=== PATIENT | male | born 1985 | race Caucasian/White ===

== ENCOUNTER 2018-01-12 18:06 | Inpatient (IN) | payer OTHER, SELFPAY ==
[2018-01-12] VITALS (8 sets, daily range): BP systolic 121–134; BP diastolic 72–97; PULSE 64–72; RESP 16–18; TEMP 36.7–36.8; O2SAT 94–100; BMI 25.1; BMI 25.6
--- NOTE | 2018-01-12 18:10 | NURSING ---
NO OLD EKGS
--- NOTE | 2018-01-12 18:20 | RAD_ITS ---
STUDY: X-RAY CHEST REASON FOR EXAM: Male, 32 years old. Chest pain, back pain. TECHNIQUE: Portable chest. COMPARISON: None. FINDINGS: The lungs are clear and expanded. There is no demonstrated pleural abnormality. Normal size heart. Normal mediastinum and zeinab. Normal visualized pulmonary arteries. Normal visualized aortic arch and descending thoracic aorta. Normal visualized thoracic spine. Normal visualized ribs, clavicles, and shoulders. There is no demonstrated abnormality of the visualized soft tissue structures of the upper abdomen. RAD/Chest 1 View (Portable) IMPRESSION: Normal x-ray examination of the chest. Electronically Signed: Jana June MD at 19:18 EST Tel , Service support ,
--- NOTE | 2018-01-12 18:20 | EKG12_ITS ---
Test Reason : CP Blood Pressure : / mmHG Vent. Rate : 065 BPM Atrial Rate : 065 BPM P-R Int : 154 ms QRS Dur : 094 ms QT Int : 386 ms P-R-T Axes : 032 075 042 degrees QTc Int : 401 ms Normal sinus rhythm Normal ECG Confirmed by TOMMY ALFARO ([id number]), proposal editor MEERA URIARTE ([id number] on 01/16/2018 2:24:20 PM Referred By: SUKHJINDER Confirmed By:TOMMY ALFARO
--- NOTE | 2018-01-12 18:21 | ED.DCSUM_ITS ---
- ER Visit Summary Date of Service: 01/12/18 Chief Complaint: Chest pain History of Present Illness: The patient is a 32 M who has had chest pain for the past 4 days. He describes an intermittent tightness in his chest. He does not know anything that would provoke it. He took ibuprofen and drink water and that made it go away. He states that his back and arms felt tight. He has no fevers. No history of any cardiac issues. He has no DVT or PE risk factors. Physical Examination: Vital signs reviewed. HEENT exam unremarkable. Heart is regular rate and rhythm without murmurs. Lungs are clear to auscultation. Abdomen is soft and nontender. Extremities reveal no edema. Peripheral pulses are equal. Skin exam normal. Neurologic exam normal. Test Results: EKG sinus rhythm with no ST changes. Labs reveal troponin of 1.69 Emergency Department Course and Treatment: Patient was given aspirin. He completely denies drug use. He has no risk factors. His MASTER score is 1. I discussed with Dr. Rodrigues. He was given Lovenox, metoprolol and Brilinta. He will be admitted to the hospital for a catheterization tomorrow morning. Treatment Plan: [] Disposition: Admit Impression: NSTEMI This note was generated with [employer] dictation software. It may contain incorrect words, spelling, and punctuation that were not noted in review of the chart prior to signing ED Disposition - Plan for ED Patient: Chief Complaint: Chest Pain Referrals: Jarett Leija MD [Primary Care Provider] -
[2018-01-12] MEDS: Aspirin 81 MG TAB.CHEW 324 MG PO (18:32)
[2018-01-12 18:36] LABS: Absolute Lymphocyte Count 2.89 X10^3/ul (0.83-4.51); Absolute Neutrophil Count 2.4 X10^3/uL (2.0-7.7); Basophil# 0.03 X10^3/uL; Basophil% 0.5 % (0-1); Eosinophil# 0.11 X10^3/uL; Eosinophils% 1.9 % (0-5); Hematocrit 42.4 % (40-54); Hemoglobin 14.3 g/dl (13.0-16.5); Lymphocyte # 2.89 X10^3/ul (4.0); Lymphocyte % 49.3 % (19-41); Mean Corp Hgb Conc 33.7 g/gl (32-36); Mean Platelet Vol. 9.4 fl (6.2-12.0); Monocyte# 0.46 X10^3/uL; Monocyte% 7.8 % (0-10); Neutrophil # 2.36 X10^3/uL (2.7-7.7); Neutrophil % 40.3 % (47-70); Platelet Count 233 K/mm3 (150-450); RBC Distribution Width CV 12.6 % (11.6-14.6); RBC Distribution Width SD 39.7 fl (35.1-43.9); Red Blood Count 4.93 M/mm3 (4.6-6.2); White Blood Count 5.9 K/mm3 (4.4-11.0)
[2018-01-12 18:49] LABS: POSITIVE COUNT NO; POSITIVE DIFFERENTIAL NO; POSITIVE MORPHOLOGY NO
[2018-01-12 18:55] LABS: Anion Gap 7 (5-15); BUN 9 mg/dL (7-18); BUN/Creat Ratio 10.3 RATIO (10-20); Calcium,Total 8.5 mg/dL (8.5-10.1); Chloride 102 mmol/L (98-107); Creatinine, Serum 0.87 mg/dL (0.70-1.30); EST Glomerular Filtration Rate 108 mL/min (>60); Est Glom Filt Rate - Afr Amer 131 mL/min (>60); Estimated Creatinine Clearance 131.03 ml/min; Glucose 93 mg/dL (74-106); Potassium 3.9 mmol/L (3.5-5.1); Sodium Level 139 mmol/L (136-145)
[2018-01-12] MEDS: TICAGRELOR 90 MG TABLET 180 MG PO (19:33)
[2018-01-12] MEDS: Enoxaparin 80 MG/0.8 ML Syringe SC (19:34)
[2018-01-12] MEDS: Metoprolol(XL)Succ 25 MG Tablet PO (19:34)
--- NOTE | 2018-01-12 20:23 | HP.PCM_ITS ---
Problem List (1) Atypical chest pain Status: Acute (2) STEMI (ST elevation myocardial infarction) Status: Acute History of Present Illness Date of Admission: 01/12/18 Chief Complaint: Chest pain for 4 days The patient is a 32 year old M with no significant medical problems came to ER with chest pain since Tuesday. Patient had chest pain, nonspecific bilateral, anterior and posterior on Tuesday and took Motrin and had relief. He had mild chest soreness on Tuesday and then no problem until today morning when he again had chest pain that persisted for about half an hour to 1 hour and then in the evening which lasted for about an hour until he came to ER and got relief from aspirin. Today, he felt that this chest pain radiated to his jaws and left arm but no associated shortness of breath, palpitation, near syncope or syncope. He denies any fever, chills, URI or lower urinary tract symptoms. No DVT or PE significant risk factor. No significant family history of cardiac disease in first-degree family relatives. EKG shows normal sinus rhythm at 65 bpm with no significant ST-T changes suggestive of ischemia. Troponin is 1.69. MASTER risk 2/7. [] Past Medical History Allergies Penicillins [PCN] Allergy (Verified 01/12/18 18:06) Unknown Home Medications: Ambulatory Orders Medication Instructions Recorded NK 01/12/18 Smoking Status: Never smoker Tobacco Use: Non-smoker - *Family History Paternal History Items: No pertinent history - Of cardiac disease coronary artery disease/CHF Review of Systems Constitutional: Denies: Chills, Fever, Weight Change HEENT: Denies: Head Aches, Sinus Congestion, Sinus Drainage Cardiovascular: Reports: Chest Pain, Chest Tightness. Denies: Palpitations Respiratory: Denies: Cough, Shortness of breath at rest, Sputum production Gastrointestinal: Denies: Abdominal Pain, Nausea, Vomiting Genitourinary: Denies: Dysuria Musculoskeletal: Denies: Joint Pain, Joint Tenderness Skin: Denies: Rash, Wounds Neurological: Denies: Numbness, Tingling, Focal weakness Psychiatric: Denies: Anxiety, Depression, Homicidal Ideations, Suicidal Ideations Hematologic/ Lymphatic: Denies: Easy Bruising, Easy Bleeding VTE Information - Inpt Only VTE Present on Admission: No VTE Mechan Device Prophylaxis: None VTE Pharm Prophylaxis ordered?: No Patient Problems: Active and Suspected Problems Atypical chest pain (Acute) STEMI (ST elevation myocardial infarction) (Acute) - Physical Exam General: Alert, Oriented x3, Cooperative HEENT: Atraumatic, PERRLA, EOMI, Normocephalic Neck: Supple, No JVD, Negative Carotid Bruits Lungs: Clear to auscultation, Normal air movement, No rhonchi, No wheeze, No rales, - - No reproducible chest tenderness Cardiovascular: Regular rate, Regular Rhythm, Normal S1, Normal S2, No murmurs Abdomen: Bowel Sounds Present, Soft, Non Tender, Non-Distended Extremities: No edema, Capillary Refill Less than 3 Seconds Skin: No rashes, No breakdown Musculoskeletal: No Tenderness to Palpation of Joints or Extremities Neurological: Cranial nerves II-XII grossly intact, Deep Tendon Reflexes 2+/4 and Symmetrical, Neuro grossly intact, Motor Exam 5/5 strength throughout Psych/Mental Status: Normal Affect, Appropriate Vital Signs Temp Pulse Resp BP Pulse Ox 98.1 F 70 16 124/97 H 96 01/12/18 18:12 01/12/18 19:32 01/12/18 19:54 01/12/18 19:32 01/12/18 19:32 Oxygen Delivery Method Room Air Weight: 183 lb 10.321 oz Body Mass Index (BMI) 25.6 Laboratory Tests Past 24 Hrs 01/12/18 01/12/18 18:12 18:12 WBC 5.9 RBC 4.93 Hgb 14.3 Hct 42.4 MCV 86.0 MCH 29.0 MCHC 33.7 RDW 12.6 RDW Differential 39.7 Plt Count 233 MPV 9.4 Immature Gran % (Auto) 0.200 Neut % (Auto) 40.3 L Lymph % (Auto) 49.3 H [place] % (Auto) 7.8 Eos % (Auto) 1.9 Baso % (Auto) 0.5 Absolute Neuts (auto) 2.4 Absolute Lymphs (auto) 2.89 Total Counted Not Reportable Sodium 139 Potassium 3.9 Chloride 102 Carbon Dioxide 30.0 Anion Gap 7 BUN 9 Creatinine 0.87 Estim Creat Clear Calc 131.03 Est GFR (MDRD) Af Amer 131 Est GFR (MDRD) Non-Af 108 BUN/Creatinine Ratio 10.3 Glucose 93 Calcium 8.5 Troponin I 1.690 H* Assessment/Plan All Active Problems Atypical chest pain (Acute) STEMI (ST elevation myocardial infarction) (Acute) The patient is a 32 year old M with no significant medical problems came to ER with chest pain since Tuesday. Patient had chest pain, nonspecific bilateral, anterior and posterior on Tuesday and took Motrin and had relief. He had mild chest soreness on Tuesday and then no problem until today morning when he again had chest pain that persisted for about half an hour to 1 hour and then in the evening which lasted for about an hour until he came to ER and got relief from aspirin. Today, he felt that this chest pain radiated to his jaws and left arm but no associated shortness of breath, palpitation, near syncope or syncope. He denies any fever, chills, URI or lower urinary tract symptoms. No DVT or PE significant risk factor. No significant family history of cardiac disease in first-degree family relatives. EKG shows normal sinus rhythm at 65 bpm with no significant ST-T changes suggestive of ischemia. Troponin is 1.69. MASTER risk 2/7. 1. Atypical chest pain with elevated troponin, suspicion of non-STEMI: Patient is being admitted in PCU. On ACS protocol with serial cardiac enzymes. Scheduled for elective cardiac cath tomorrow morning. ER physician discussed with Dr. Rodrigues. Patient was given Lovenox 80 mg subcu 1 dose, metoprolol and Brilinta 180 mg as a protocol for non-STEMI. Nitro sublingual as needed for chest pain. Fasting lipid profile tomorrow a.m. TSH tomorrow a.m. 2. Mild constipation: Oral laxatives ordered. 3. DVT prophylaxis: Low risk but patient had Lovenox 80 mg subcu 1 dose for suspicion of non-STEMI. Laboratory Results 01/12/18 18:12: WBC 5.9, RBC 4.93, Hgb 14.3, Hct 42.4, MCV 86.0, MCH 29.0, MCHC 33.7, RDW 12.6, RDW Differential 39.7, Plt Count 233, MPV 9.4, Immature Gran % (Auto) 0.200, Neut % (Auto) 40.3 L, Lymph % (Auto) 49.3 H, [place] % (Auto) 7.8, Eos % (Auto) 1.9, Baso % (Auto) 0.5, Absolute Neuts (auto) 2.4, Absolute Lymphs (auto) 2.89, Total Counted Not Reportable 01/12/18 18:12: Sodium 139, Potassium 3.9, Chloride 102, Carbon Dioxide 30.0, Anion Gap 7, BUN 9, Creatinine 0.87, Estim Creat Clear Calc 131.03, Est GFR (MDRD) Af Amer 131, Est GFR (MDRD) Non-Af 108, BUN/Creatinine Ratio 10.3, Glucose 93, Calcium 8.5, Troponin I 1.690 H* Code Visit Inpatient E&M: 40423 Init Hosp L3
--- NOTE | 2018-01-12 20:34 | EKG12_ITS ---
Test Reason : ADMIT Blood Pressure : / mmHG Vent. Rate : 067 BPM Atrial Rate : 067 BPM P-R Int : 154 ms QRS Dur : 090 ms QT Int : 368 ms P-R-T Axes : 033 082 035 degrees QTc Int : 388 ms Normal sinus rhythm Normal ECG No previous ECGs available Confirmed by TOMMY ALFARO ([id number]), loan expeditor MEERA URIARTE ([id number] on 01/16/2018 2:58:41 PM Referred By: HARPREET Confirmed By:TOMMY ALFARO
--- NOTE | 2018-01-12 21:35 | PCM.CONS.C ---
Problem List (1) Abnormal cardiac enzyme level Status: Acute (2) Atypical chest pain Status: Acute (3) NSTEMI (non-ST elevated myocardial infarction) Status: Acute Reason for Consult Date of Consultation: 01/12/18 History of Present Illness: The patient is a 32 year old white male with no past cardiovascular/medical history who presents for evaluation of chest discomfort and subsequent findings of abnormal cardiac enzymes concerning for a non-ST segment elevation SC. The patient states starting last Tuesday he began having chest and back discomfort. This is waxed and waned throughout the course of the week. As the week is gone on he is also noted discomfort in his neck/under his chin as well as in the triceps areas of both upper extremities. He has not had any significant change in his respiratory status nor has he had any obvious nausea, emesis, or diaphoresis. There has been no palpitations, near syncope, or syncope. He has not complained of any episodes of orthopnea, PND, peripheral pitting edema. He states that he attributed his symptoms to muscle skeletal discomfort. He treated them on his own with aspirin and/or ibuprofen as well as drinking water. He states after doing such he did feel somewhat better. However his symptoms continue to wax and wane and thus he was brought to the emergency department this evening for further evaluation. There he underwent laboratory studies which demonstrated an abnormal troponin I level. He had an ECG performed and repeated that demonstrated what appeared to be normal sinus rhythm with no obvious acute ECG changes. A chest x-ray was performed which reported no obvious acute cardiopulmonary changes. He was placed in the PCU for further evaluation and care. At the present time he states he is resting comfortably with no ongoing discomfort. In the interim he has been treated with a combination of aspirin, Brilinta, Lovenox, and initiation of low-dose beta-kacey therapy. He denies any illness prior to the symptoms such as a viral illness. He denies any positional component of his symptoms that would raise suspicion of an underlying acute pericarditis type event. He has had no obvious findings of elevated heart rate, diminished blood pressure, elevated respiratory rate, or diminished O2 saturations suspicious for acute thromboembolic disease. There is been no history of cerebral vascular disease, ongoing infectious related etiologies, or renal insufficiency. He states that there is no obvious cardiovascular disease in his family other than a grandparent who had a CVA in their 70s. He denies any tobacco history and/or any illicit drug use. He states he has been actively working without obvious issues until this week. He has had no trauma to his thoracic cavity area at home or at work. [] Past Medical History Allergies/Adverse Reactions: Allergies Penicillins [PCN] Allergy (Verified 01/12/18 18:06) Unknown Home Medications: Ambulatory Orders Medication Instructions Recorded NK 01/12/18 - *Family History Paternal History Items: No pertinent history - Of cardiac disease coronary artery disease/CHF Lives: Spouse/ Significant Other Smoking Status: Never smoker Tobacco Use: Non-smoker Alcohol: None Drugs: None Review of Systems - Review of Systems General: Denies: Fever, Night Sweats, Fatigue Cardiovascular: Reports: Chest Discomfort, Chest Discomfort at Rest, Chest Discomfort with Exertion. Denies: Shortness of Breath, Orthopnea, PND, Peripheral Edema, Palpitations, Lightheadedness, Dizziness, Near Syncope, Syncope Respiratory: Denies: Cough, Sputum Production, Hemoptysis Gastrointestinal: Denies: Hematemesis, Hematochezia, Melena Genitourinary: Denies: Dysuria, Hematuria Skin: Denies: Rash Subjectve: This is a 32-year-old white male who appears resting comfortably at the moment in no acute distress. Objective: Vital Signs Temp Pulse Resp BP Pulse Ox 98.3 F 64 16 121/72 H 98 01/12/18 19:45 01/12/18 19:45 01/12/18 19:54 01/12/18 19:45 01/12/18 19:45 Oxygen Delivery Method Room Air Weight: 183 lb 10.321 oz Body Mass Index (BMI) 25.6 General: Awake, Alert, Oriented x 3, Cooperative, No Acute Distress HEENT: Atraumatic, Normocephalic, PERRL, EOMI, Sclera Non Icteric Oral: Moist Mucosa Neck: Supple, Good ROM, No JVD Lungs: Clear to auscultation Cardiovascular: Regular Rhythm, Normal S1, Normal S2 Vascular: No Carotid Bruits Abdomen: Bowel Sounds Present, Soft, Non Tender Extremities: No Cyanosis, No Clubbing, No edema Neurological: No Focal Motor or Sensory Deficit Psych/Mental Status: Appropriate, Normal Affect 01/12/18 18:12: WBC 5.9, RBC 4.93, Hgb 14.3, Hct 42.4, MCV 86.0, MCH 29.0, MCHC 33.7, RDW 12.6, RDW Differential 39.7, Plt Count 233, MPV 9.4, Immature Gran % (Auto) 0.200, Neut % (Auto) 40.3 L, Lymph % (Auto) 49.3 H, [place] % (Auto) 7.8, Eos % (Auto) 1.9, Baso % (Auto) 0.5, Absolute Neuts (auto) 2.4, Total Counted Not Reportable 01/12/18 18:12: Sodium 139, Potassium 3.9, Chloride 102, Carbon Dioxide 30.0, Anion Gap 7, BUN 9, Creatinine 0.87, Est GFR (MDRD) Af Amer 131, Est GFR (MDRD) Non-Af 108, BUN/Creatinine Ratio 10.3, Glucose 93, Calcium 8.5, Troponin I 1.690 H* Rhythm: Sinus rhythm EKG: As noted above CXR: As noted above Assessment/Plan 1. Chest discomfort The patient presents with waxing and waning chest discomfort. He has some features concerning for angina pectoris. He has had no other obvious etiology to explain his symptoms at this time. He did have cardiac enzymes performed which were abnormal. Thus far there is been no other obvious etiology to explain his cardiac enzymes other than the current concern of underlying cardiovascular disease. He has been treated for cardiovascular disease. He appears to be symptomatically improved at the moment. He will continue to be followed with respect to his symptoms, laboratory studies, and ECG. However based upon the ongoing combination of concerns it was felt prudent that he, unless otherwise explained, undergo further evaluation in the cardiac catheterization laboratory to evaluate for obvious underlying CAD that requires further evaluation care. 2. Abnormal cardiac enzyme Again thus far there is been no other obvious explanation to explain the patient's elevated troponin I level. His troponin I levels will be followed. His ECG will be followed. Unless there is another obvious explanation he will need to be considered for cardiac catheterization to evaluate for underlying premature CAD, etc. to explain his symptoms and cardiac enzyme findings. In the meantime he will continue medical management as deemed appropriate. 3. Non-ST segment elevation SC Based upon the patient's clinical findings and his abnormal troponin I level there is concern of a non-ST segment elevation SC. Thus, as there is been no other obvious explanation to explain his symptoms are cardiac enzyme levels, he will continue to be monitored. He will be treated medically as deemed appropriate. He will be considered for further evaluation with diagnostic cardiac catheterization. The cardiac catheterization procedure was discussed with the patient with respect to the risks and benefits. He was agreeable to this approach. Of note, the patient states that he believes he has adverse reactions to shellfish. This does raise concern of whether or not he could have any type of iodine type related allergy. Thus he will be premedicated prior to cardiac catheterization with a combination of corticosteroids, antihistamines, and H2 antagonist. Comment: The above was discussed and reviewed with the patient, his spouse, and the [facility] emergency department staff. This note was generated with [employer] dictation software. It may contain incorrect words, spelling, and punctuation that were not noted in checking the note before signing.
--- NOTE | 2018-01-12 21:40 | CON.PCM_ITS ---
Problem List (1) Abnormal cardiac enzyme level Status: Acute (2) Atypical chest pain Status: Acute (3) NSTEMI (non-ST elevated myocardial infarction) Status: Acute Reason for Consult Date of Consultation: 01/12/18 History of Present Illness: The patient is a 32 year old white male with no past cardiovascular/medical history who presents for evaluation of chest discomfort and subsequent findings of abnormal cardiac enzymes concerning for a non-ST segment elevation OR. The patient states starting last Tuesday he began having chest and back discomfort. This is waxed and waned throughout the course of the week. As the week is gone on he is also noted discomfort in his neck/under his chin as well as in the triceps areas of both upper extremities. He has not had any significant change in his respiratory status nor has he had any obvious nausea, emesis, or diaphoresis. There has been no palpitations, near syncope, or syncope. He has not complained of any episodes of orthopnea, PND, peripheral pitting edema. He states that he attributed his symptoms to muscle skeletal discomfort. He treated them on his own with aspirin and/or ibuprofen as well as drinking water. He states after doing such he did feel somewhat better. However his symptoms continue to wax and wane and thus he was brought to the emergency department this evening for further evaluation. There he underwent laboratory studies which demonstrated an abnormal troponin I level. He had an ECG performed and repeated that demonstrated what appeared to be normal sinus rhythm with no obvio us acute ECG changes. A chest x-ray was performed which reported no obvious acute cardiopulmonary changes. He was placed in the PCU for further evaluation and care. At the present time he states he is resting comfortably with no ongoing discomfort. In the interim he has been treated with a combination of aspirin, Brilinta, Lovenox, and initiation of low-dose beta-kacey therapy. He denies any illness prior to the symptoms such as a viral illness. He denies any positional component of his symptoms that would raise suspicion of an underlying acute pericarditis type event. He has had no obvious findings of elevated heart rate, diminished blood pressure, elevated respiratory rate, or diminished O2 saturations suspicious for acute thromboembolic disease. There is been no history of cerebral vascular disease, ongoing infectious related etiologies, or renal insufficiency. He states that there is no obvious cardiovascular disease in his family other than a grandparent who had a CVA in their 70s. He denies any tobacco history and/or any illicit drug use. He states he has been actively working without obvious issues until this week. He has had no trauma to his thoracic cavity ar ea at home or at work. [] Past Medical History Allergies/Adverse Reactions: Allergies Penicillins [PCN] Allergy (Verified 01/12/18 18:06) Unknown Home Medications: Ambulatory Orders Medication Instructions Recorded NK 01/12/18 - *Family History Paternal History Items: No pertinent history - Of cardiac disease coronary artery disease/CHF Lives: Spouse/ Significant Other Smoking Status: Never smoker Tobacco Use: Non-smoker Alcohol: None Drugs: None Review of Systems - Review of Systems General: Denies: Fever, Night Sweats, Fatigue Cardiovascular: Reports: Chest Discomfort, Chest Discomfort at Rest, Chest Discomfort with Exertion. Denies: Shortness of Breath, Orthopnea, PND, Peripheral Edema, Palpitations, Lightheadedness, Dizziness, Near Syncope, Syncope Respiratory: Denies: Cough, Sputum Production, Hemoptysis Gastrointestinal: Denies: Hematemesis, Hematochezia, Melena Genitourinary: Denies: Dysuria, Hematuria Skin: Denies: Rash Subjectve: This is a 32-year-old white male who appears resting comfortably at the moment in no acute distress. Objective: Vital Signs Temp Pulse Resp BP Pulse Ox 98.3 F 64 16 121/72 H 98 01/12/18 19:45 01/12/18 19:45 01/12/18 19:54 01/12/18 19:45 01/12/18 19:45 Oxygen Delivery Method Room Air Weight: 183 lb 10.321 oz Body Mass Index (BMI) 25.6 General: Awake, Alert, Oriented x 3, Cooperative, No Acute Distress HEENT: Atraumatic, Normocephalic, PERRL, EOMI, Sclera Non Icteric Oral: Moist Mucosa Neck: Supple, Good ROM, No JVD Lungs: Clear to auscultation Cardiovascular: Regular Rhythm, Normal S1, Normal S2 Vascular: No Carotid Bruits Abdomen: Bowel Sounds Present, Soft, Non Tender Extremities: No Cyanosis, No Clubbing, No edema Neurological: No Focal Motor or Sensory Deficit Psych/Mental Status: Appropriate, Normal Affect 01/12/18 18:12: WBC 5.9, RBC 4.93, Hgb 14.3, Hct 42.4, MCV 86.0, MCH 29.0, MCHC 33.7, RDW 12.6, RDW Differential 39.7, Plt Count 233, MPV 9.4, Immature Gran % (Auto) 0.200, Neut % (Auto) 40.3 L, Lymph % (Auto) 49.3 H, [place] % (Auto) 7.8, Eos % (Auto) 1.9, Baso % (Auto) 0.5, Absolute Neuts (auto) 2.4, Total Counted Not Reportable 01/12/18 18:12: Sodium 139, Potassium 3.9, Chloride 102, Carbon Dioxide 30.0, Anion Gap 7, BUN 9, Creatinine 0.87, Est GFR (MDRD) Af Amer 131, Est GFR (MDRD) Non-Af 108, BUN/Creatinine Ratio 10.3, Glucose 93, Calcium 8.5, Troponin I 1.690 H* Rhythm: Sinus rhythm EKG: As noted above CXR: As noted above Assessment/Plan 1. Chest discomfort The patient presents with waxing and waning chest discomfort. He has some features concerning for angina pectoris. He has had no other obvious etiology to explain his symptoms at this time. He did have cardiac enzymes performed which were abnormal. Thus far there is been no other obvious etiology to explain his cardiac enzymes other than the current concern of underlying cardiovascular disease. He has been treated for cardiovascular disease. He appears to be symptomatically improved at the moment. He will continue to be followed with respect to his symptoms, laboratory studies, and ECG. However based upon the ongoing combination of concerns it was felt prudent that he, unless otherwise explained, undergo further evaluation in the cardiac catheterization laboratory to evaluate for obvious underlying CAD that requires further evaluation care. 2. Abnormal cardiac enzyme Again thus far there is been no other obvious explanation to explain the patient's elevated troponin I level. His troponin I levels will be followed. His ECG will be followed. Unless there is another obvious explanation he will need to be considered for cardiac catheterization to evaluate for underlying premature CAD, etc. to explain his symptoms and cardiac enzyme findings. In the meantime he will continue medical management as deemed appropriate. 3. Non-ST segment elevation OR Based upon the patient's clinical findings and his abnormal troponin I level there is concern of a non-ST segment elevation OR. Thus, as there is been no other obvious explanation to explain his symptoms are cardiac enzyme levels, he will continue to be monitored. He will be treated medically as deemed appropriate. He will be considered for further evaluation with diagnostic cardiac catheterization. The cardiac catheterization procedure was discussed with the patient with respect to the risks and benefits. He was agreeable to this approach. Of note, the patient states that he believes he has adverse reactions to shellfish. This does raise concern of whether or not he could have any type of iodine type related allergy. Thus he will be premedicated prior to cardiac catheterization with a combination of corticosteroids, antihistamines, and H2 antagonist. Comment: The above was discussed and reviewed with the patient, his spouse, and the [facility] emergency department staff. This note was generated with iPositioning dictation software. It may contain incorrect words, spelling, and punctuation that were not noted in checking the note before signing.
[2018-01-12] MEDS: predniSONE 20 MG Tablet 60 MG PO (22:05)
[2018-01-12] MEDS: DiphenhydrAMINE 25 MG Capsule 50 MG PO (22:05)
[2018-01-12] MEDS: Atorvastatin Calcium 80 MG Tablet PO (22:05)
[2018-01-12] MEDS: Famotidine 20 MG Tablet PO (22:09)
[2018-01-12 22:30] LABS: Bacteria 0 SEEN /hpf (None Seen); Mucous, Urine 0 SEEN /hpf (<or=2+); Red Blood Cells-Urine 0 SEEN /hpf (0-5); Squamous Epithelial Cells - UA 0 SEEN /hpf (0-5); White Blood Cells 0 SEEN /hpf (0-5)
[2018-01-12 22:37] LABS: Glucose, Dipstick Normal (Normal); Ketone-Dipstick Negative (Negative); Leukocyte Esterase-Dipstick Negative /ul (Negative); Nitrite-Dipstick Negative (Negative); Occult Blood-Urine Negative /ul (Negative); Protein-Dipstick Negative (Negative); Urine Bilirubin Dipstick Negative (Negative); Urine Urobilinogen Normal (Normal)
[2018-01-12 22:46] LABS: Color, Urine Straw (Yellow); Urine Clarity Clear (Clear)
[2018-01-13] VITALS (20 sets, daily range): BP systolic 102–136; BP diastolic 52–82; PULSE 61–83; RESP 16–18; TEMP 36.6–37.2; O2SAT 96–99
[2018-01-13 05:36] LABS: Absolute Lymphocyte Count 0.89 X10^3/ul (0.83-4.51); Absolute Neutrophil Count 4.7 X10^3/uL (2.0-7.7); Basophil# 0.05 X10^3/uL; Basophil% 0.9 % (0-1); Eosinophil# 0.01 X10^3/uL; Eosinophils% 0.2 % (0-5); Hemoglobin 15.3 g/dl (13.0-16.5); Lymphocyte # 0.89 X10^3/ul (4.0); Lymphocyte % 15.5 % (19-41); Mean Corp Hgb Conc 34.8 g/gl (32-36); Mean Corpuscular Hgb 29.1 pg (27.0-32.0); Mean Corpuscular Volume 83.7 fL (80-94); Mean Platelet Vol. 9.4 fl (6.2-12.0); Monocyte# 0.07 X10^3/uL; Monocyte% 1.2 % (0-10); Platelet Count 283 K/mm3 (150-450); RBC Distribution Width CV 12.3 % (11.6-14.6); RBC Distribution Width SD 37.1 fl (35.1-43.9); Red Blood Count 5.26 M/mm3 (4.6-6.2); White Blood Count 5.7 K/mm3 (4.4-11.0)
[2018-01-13 05:38] LABS: Differential Indicated SCAN CRITERIA MET; POSITIVE COUNT NO; POSITIVE DIFFERENTIAL NO; POSITIVE MORPHOLOGY YES
[2018-01-13 05:41] LABS: Prothrombin Time (Protime)PT. 12.9 SECONDS (11.7-14.9)
[2018-01-13 05:55] LABS: Anion Gap 10 (5-15); BUN 9 mg/dL (7-18); BUN/Creat Ratio 9.9 RATIO (10-20); Calcium,Total 9.1 mg/dL (8.5-10.1); Chloride 105 mmol/L (98-107); Cholesterol 186 mg/dL (200); Creatinine, Serum 0.91 mg/dL (0.70-1.30); EST Glomerular Filtration Rate 103 mL/min (>60); Est Glom Filt Rate - Afr Amer 124 mL/min (>60); Estimated Creatinine Clearance 125.27 ml/min; Glucose 148 mg/dL (74-106); High Density Lipoprotein 49 mg/dL; Potassium 4.2 mmol/L (3.5-5.1); Sodium Level 140 mmol/L (136-145); Thyroid Stim Hormone (TSH) 0.77 uIU/mL (0.358-3.74); Triglycerides 52 mg/dL; Very Low Density Lipoprotein 10 mg/dL (5-40)
--- NOTE | 2018-01-13 05:55 | EKG12_ITS ---
Test Reason : AM Blood Pressure : / mmHG Vent. Rate : 065 BPM Atrial Rate : 065 BPM P-R Int : 156 ms QRS Dur : 096 ms QT Int : 402 ms P-R-T Axes : 043 089 057 degrees QTc Int : 418 ms Normal sinus rhythm Normal ECG When compared with ECG of 12-JAN-2018 20:14, MANUAL COMPARISON REQUIRED, DATA IS UNCONFIRMED Confirmed by TOMMY ALFARO ([id number]), editorial writer MEERA URIARTE ([id number]) on 01/16/2018 2:59:26 PM Referred By: HARPREET Confirmed By:TOMMY ALFARO
--- NOTE | 2018-01-13 05:55 | ECHOD_ITS ---
Reason For Study: Chest Pain Procedure This was a 2D Doppler, Color Flow transthoracic echocardiogram. The exam was of adequate technical quality. Exam performed portable in patient room. Left Ventricle Normal LV size. Left ventricular systolic function is normal. The estimated ejection fraction is 65 %. Normal diastology for age. No regional wall motion abnormalities noted. Right Ventricle Normal RV size. Normal systolic function. Atria Normal left atrium. Normal right atrium. No doppler evidence for ASD. Mitral Valve There is no mitral annular calcification. Normal mitral valve. Trivial mitral valve insufficiency. Tricuspid Valve Normal tricuspid valve. Trivial tricuspid valve insufficiency. Right ventricular systolic pressure estimated to be 28 mmHg. Aortic Valve Trisinus/trileaflet aortic valve. Normal aortic valve. Pulmonic Valve The pulmonic valve is not well visualized. Great Vessels Normal sized aortic root. Pericardium/Pleural No pericardial effusion. MMode/2D Measurements & Calculations LVIDd: 5.0 cm IVSd: 0.90 cm Ao root diam: 3.2 cm LVIDs: 3.2 cm LVPWd: 0.99 cm LA dimension: 4.2 cm RVDd: 4.0 cm FS: 37.2 % LAV(MOD-bp): 59.1 ml LA A4 area: 22.6 cm2 RA A4 area: 15.5 cm2 LAV(MOD-bp) Indexed: 29.1 ml/m2 LAV(MOD-sp2): 44.7 ml LAV(MOD-sp4): 69.8 ml Time Measurements MV dec time: 0.23 sec Doppler Measurements & Calculations MV E max jani: 84.2 cm/sec Lat Peak E' Jani: 14.7 cm/sec Med Peak E' Jani: 9.9 cm/sec MV A max jani: 69.8 cm/sec E/E' lat: 5.7 E/E' med: 8.5 MV E/A: 1.2 MV V2 max: 88.6 cm/sec MV P1/2t max jani: 86.7 cm/sec Ao V2 max: 147.3 cm/sec MV max P.1 mmHg MV P1/2t: 98.9 msec Ao max P.7 mmHg MV V2 mean: 52.2 cm/sec MV dec slope: 256.7 cm/sec2 Ao V2 mean: 92.9 cm/sec MV mean P.3 mmHg MVA(P1/2t): 2.2 cm2 Ao mean P.1 mmHg MV V2 VTI: 26.7 cm Ao V2 VTI: 30.3 cm LV V1 max: 135.9 cm/sec PA V2 max: 119.4 cm/sec TR max jani: 251.8 cm/sec LV V1 max P.4 mmHg TR max P.4 mmHg LV V1 mean P.6 mmHg LV V1 mean: 87.3 cm/sec LV V1 VTI: 29.7 cm Interpretation Summary Left ventricular systolic function is normal. The estimated ejection fraction is 65 %. Trivial mitral valve insufficiency. Trivial tricuspid valve insufficiency. Right ventricular systolic pressure estimated to be 28 mmHg. Normal diastology for age. Ordering Physician: Tor Rodrigues Referring Physician: Jarett Leija Performed By: Nakul Varma RCS
[2018-01-13] MEDS: TICAGRELOR 90 MG TABLET PO (06:24)
[2018-01-13] MEDS: predniSONE 20 MG Tablet 60 MG PO (06:25)
[2018-01-13] MEDS: Metoprolol Tartrate 25 MG Tablet 12.5 MG PO (06:25)
[2018-01-13] MEDS: Aspirin E.C. 81 MG Tablet PO (06:25)
[2018-01-13] MEDS: Famotidine 20 MG Tablet PO (06:34)
[2018-01-13] MEDS: 0.9% NaCl Peripheral Flush Adult/Peds IV (06:34)
--- NOTE | 2018-01-13 06:39 | NURSING ---
Called report to RN in [facility] programmer at this time. Informed of shaving site - patient had difficulty due to being very tickleish. Sites preped.
--- NOTE | 2018-01-13 08:43 | CT_ITS ---
STUDY: CTA CHEST REASON FOR EXAM: Male, 32 years old. Chest pain, non-STEMI. Question PE versus great vessel disease. RADIATION DOSAGE (If Supplied By Facility): CTDIvol = ( 14.3 ) mGy, DLP = ( 580.32 ) mGycm TECHNIQUE: The examination was performed with the intravenous administration of 75CC ml of Isovue 370 contrast material. Post-processing of the angiographic images was performed, with multiplanar reformation and 3D reconstruction. Individualized dose optimization techniques were used for this CT. COMPARISON: None. FINDINGS: The heart and pericardium are normal. The aorta is normal in caliber, with no aneurysm or dissection. There is no mediastinal mass or adenopathy. There is no hilar or axillary adenopathy. There is no evidence of pulmonary embolus. Pulmonary arteries are unremarkable. There is no pleural effusion. There is no pulmonary consolidation. There is a calcified granuloma in the right lung apex. There is a 3 mm nodule in the right upper lobe on series 2 image 198. There is a 5 mm subpleural nodule in the right lower lobe on image 124. No interstitial or cystic disease. Visualized abdomen is unremarkable. There is no osseous abnormality. CT/CTA Chest W/WO Contrast IMPRESSION: 1. No evidence of pulmonary embolus or aortic dissection. 2. Nonspecific pulmonary nodules on the right. If the patient is at high risk for pulmonary malignancy, consider follow-up CT at 12 months. 3. Old granulomatous disease. Electronically Signed: Jana June MD at 17:14 EST Tel , Service support ,
--- NOTE | 2018-01-13 09:18 | CASEMGMT ---
According to the MMO website, the following are in-network tertiary facilities: [facility], [facility], [facility], [facility], [facility], [facility], [facility], and . Beatriz WEEMS CM
[2018-01-13] MEDS: 0.9% Normal Saline 1,000 ML 100 ML IV ×2 (09:33→21:09)
--- NOTE | 2018-01-13 10:34 | CASEMGMT ---
FAUSTINA LE assessment: Face to Face with patient for initial transition planning/care coordination assessment. FAUSTINA LE introduced self and role at [facility], pt voices understanding and consents to assessment at this time. Pt is sitting up in bed in no distress at this time. Pt is A/O x4 at this time and answers all questions appropriately at this time. Care providers, pharmacy, and demographics verified at this time. PCP: [facility] Specialists: Pt states no current specialists. Preferred [facility]acy: [facility] Insurance: MMO Prescription Benefit: MMO Living Will/HPOA: Pt states no current LW/HPOA but pt would like info at this time. Info provided and pt/ aware to ask for CM if would like to complete AD paperwork while here. LNOK: Mimi Montano, Living Arrangements: Pt states lives with /family in house and states no concerns at home at this time. Transportation: Pt states drives self and states no transportation concerns at this time. DME/HHC: Pt states no current DME or need for any at this time. Pt states no hx HHC or SNF. Pt states no concerns with going home at time of discharge. Pt states does not smoke but drinks ETOH occasionally. Pt voices no further concerns/needs at this time. CM to follow for any further discharge planning/needs. Advised pt to ask for CM if any further questions/concerns/needs arise, voices understanding. Plan: [place] FAUSTINA LE
--- NOTE | 2018-01-13 14:00 | PCM.PROGNOTE ---
<Daina Garcia - Last Filed: 01/13/18 14:05> Patient Problems: Active and Suspected Problems Atypical chest pain (Acute) NSTEMI (non-ST elevated myocardial infarction) (Acute) Abnormal cardiac enzyme level (Acute) Subjective: Patient seen and examined. Denies further chest pain. Recovering from cardiac catheterization which was reported to be normal. Patient denies other current symptoms. His family at bedside does report there is a family history of hypercoagulable disorders. CTA ordered pending recovery from cath. - Physical Exam General: Alert, Oriented x3, Cooperative HEENT: Atraumatic, PERRLA, EOMI, Normocephalic Neck: Supple, No JVD, Negative Carotid Bruits Lungs: Clear to auscultation, Normal air movement Cardiovascular: Regular rate, Regular Rhythm, Normal S1, Normal S2, No murmurs Abdomen: Bowel Sounds Present, Soft, Non Tender, Non-Distended Extremities: No clubbing, No cyanosis, No edema, Capillary Refill Less than 3 Seconds Skin: No rashes, No breakdown Musculoskeletal: No Tenderness to Palpation of Joints or Extremities Neurological: Cranial nerves II-XII grossly intact, Neuro grossly intact Psych/Mental Status: Normal Affect, Appropriate Vital Signs Temp Pulse Resp BP Pulse Ox 98.9 F 71 18 113/52 L 97 01/13/18 12:25 01/13/18 12:25 01/13/18 12:25 01/13/18 12:25 01/13/18 12:25 Oxygen Delivery Method Room Air Weight: 183 lb 10.321 oz Body Mass Index (BMI) 25.6 Intake and Output for Last 24 Hours 01/11/18 01/12/18 01/13/18 23:59 23:59 23:59 Intake Total 1384 / 1384 Output Total 300 / 300 Balance 1084 / 1084 Laboratory Tests Past 24 Hrs 01/12/18 01/12/18 01/12/18 18:12 18:12 21:52 WBC 5.9 RBC 4.93 Hgb 14.3 Hct 42.4 MCV 86.0 MCH 29.0 MCHC 33.7 RDW 12.6 RDW Differential 39.7 Plt Count 233 MPV 9.4 Immature Gran % (Auto) 0.200 Neut % (Auto) 40.3 L Lymph % (Auto) 49.3 H [place] % (Auto) 7.8 Eos % (Auto) 1.9 Baso % (Auto) 0.5 Absolute Neuts (auto) 2.4 Absolute Lymphs (auto) 2.89 Total Counted Not Reportable PT INR APTT Sodium 139 Potassium 3.9 Chloride 102 Carbon Dioxide 30.0 Anion Gap 7 BUN 9 Creatinine 0.87 Estim Creat Clear Calc 131.03 Est GFR (MDRD) Af Amer 131 Est GFR (MDRD) Non-Af 108 BUN/Creatinine Ratio 10.3 Glucose 93 Calcium 8.5 Troponin I 1.690 H* 4.020 H* Triglycerides Cholesterol LDL Cholesterol VLDL Cholesterol HDL Cholesterol TSH Urine Color Urine Clarity Urine pH Ur Specific [place] Urine Protein Urine Glucose (UA) Urine Ketones Urine Occult Blood Urine Nitrite Urine Bilirubin Urine Urobilinogen Ur Leukocyte Esterase Urine RBC Urine WBC Ur Squamous Epith Cells Urine Bacteria Urine Mucus 01/12/18 01/13/18 01/13/18 22:22 00:38 05:10 WBC RBC Hgb Hct MCV MCH MCHC RDW RDW Differential Plt Count MPV Immature Gran % (Auto) Neut % (Auto) Lymph % (Auto) [place] % (Auto) Eos % (Auto) Baso % (Auto) Absolute Neuts (auto) Absolute Lymphs (auto) Total Counted PT INR APTT Sodium 140 Potassium 4.2 Chloride 105 Carbon Dioxide 25.0 Anion Gap 10 BUN 9 Creatinine 0.91 Estim Creat Clear Calc 125.27 Est GFR (MDRD) Af Amer 124 Est GFR (MDRD) Non-Af 103 BUN/Creatinine Ratio 9.9 L Glucose 148 H Calcium 9.1 Troponin I 3.930 H* Triglycerides 52 Cholesterol 186 LDL Cholesterol 127 VLDL Cholesterol 10 HDL Cholesterol 49 TSH 0.77 Urine Color Straw Urine Clarity Clear Urine pH 7.0 Ur Specific [place] 1.010 Urine Protein Negative Urine Glucose (UA) Normal Urine Ketones Negative Urine Occult Blood Negative Urine Nitrite Negative Urine Bilirubin Negative Urine Urobilinogen Normal Ur Leukocyte Esterase Negative Urine RBC 0 SEEN Urine WBC 0 SEEN Ur Squamous Epith Cells 0 SEEN Urine Bacteria 0 SEEN Urine Mucus 0 SEEN 01/13/18 01/13/18 05:10 05:10 WBC 5.7 RBC 5.26 Hgb 15.3 Hct 44.0 MCV 83.7 MCH 29.1 MCHC 34.8 RDW 12.3 RDW Differential 37.1 Plt Count 283 MPV 9.4 Immature Gran % (Auto) 0.200 Neut % (Auto) 82.0 H Lymph % (Auto) 15.5 L [place] % (Auto) 1.2 Eos % (Auto) 0.2 Baso % (Auto) 0.9 Absolute Neuts (auto) 4.7 Absolute Lymphs (auto) 0.89 Total Counted Not Reportable PT 12.9 INR 1.0 APTT 32.0 Sodium Potassium Chloride Carbon Dioxide Anion Gap BUN Creatinine Estim Creat Clear Calc Est GFR (MDRD) Af Amer Est GFR (MDRD) Non-Af BUN/Creatinine Ratio Glucose Calcium Troponin I Triglycerides Cholesterol LDL Cholesterol VLDL Cholesterol HDL Cholesterol TSH Urine Color Urine Clarity Urine pH Ur Specific [place] Urine Protein Urine Glucose (UA) Urine Ketones Urine Occult Blood Urine Nitrite Urine Bilirubin Urine Urobilinogen Ur Leukocyte Esterase Urine RBC Urine WBC Ur Squamous Epith Cells Urine Bacteria Urine Mucus Medical Necessity - Tobacco Use Smoking Status: Never smoker Tobacco Use: Non-smoker Assessment/Plan All Active Problems Atypical chest pain (Acute) NSTEMI (non-ST elevated myocardial infarction) (Acute) Abnormal cardiac enzyme level (Acute) 1. NSTEMI/chest pain-cardiology following. Troponin peaked at 4.0. Patient underwent cardiac catheterization this morning which showed normal coronary arteries. Lipid panel, TSH normal. Patient denies further chest pain. Chest CTA and echocardiogram pending, further disposition pending these results. DVT prophylaxis-SCDs This patient was seen by REINALDO Gregg under the supervision of Dr. Gandara. <Nate Gandara - Last Filed: 01/13/18 14:19> Subjective: No further chest pain. - Physical Exam General: Alert, Cooperative HEENT: Atraumatic, Normocephalic Lungs: Clear to auscultation, Normal air movement, No rhonchi, No wheeze Cardiovascular: Regular rate, Regular Rhythm, Normal S1, Normal S2 Abdomen: Bowel Sounds Present, Soft, Non Tender, Non-Distended, No Hepato-splenomegaly Extremities: No edema, No Calf Tenderness Skin: No rashes, No breakdown Psych/Mental Status: Normal Affect, Appropriate Vital Signs Temp Pulse Resp BP Pulse Ox 37.2 C 71 18 113/52 L 97 01/13/18 12:25 01/13/18 12:25 01/13/18 12:25 01/13/18 12:25 01/13/18 12:25 Oxygen Delivery Method Room Air Weight: 83.3 kg Body Mass Index (BMI) 25.6 Intake and Output for Last 24 Hours 01/11/18 01/12/18 01/13/18 23:59 23:59 23:59 Intake Total 1384 / 1384 Output Total 300 / 300 Balance 1084 / 1084 Laboratory Tests Past 24 Hrs 01/12/18 01/12/18 01/12/18 18:12 18:12 21:52 WBC 5.9 RBC 4.93 Hgb 14.3 Hct 42.4 MCV 86.0 MCH 29.0 MCHC 33.7 RDW 12.6 RDW Differential 39.7 Plt Count 233 MPV 9.4 Immature Gran % (Auto) 0.200 Neut % (Auto) 40.3 L Lymph % (Auto) 49.3 H [place] % (Auto) 7.8 Eos % (Auto) 1.9 Baso % (Auto) 0.5 Absolute Neuts (auto) 2.4 Absolute Lymphs (auto) 2.89 Total Counted Not Reportable PT INR APTT Sodium 139 Potassium 3.9 Chloride 102 Carbon Dioxide 30.0 Anion Gap 7 BUN 9 Creatinine 0.87 Estim Creat Clear Calc 131.03 Est GFR (MDRD) Af Amer 131 Est GFR (MDRD) Non-Af 108 BUN/Creatinine Ratio 10.3 Glucose 93 Calcium 8.5 Troponin I 1.690 H* 4.020 H* Triglycerides Cholesterol LDL Cholesterol VLDL Cholesterol HDL Cholesterol TSH Urine Color Urine Clarity Urine pH Ur Specific [place] Urine Protein Urine Glucose (UA) Urine Ketones Urine Occult Blood Urine Nitrite Urine Bilirubin Urine Urobilinogen Ur Leukocyte Esterase Urine RBC Urine WBC Ur Squamous Epith Cells Urine Bacteria Urine Mucus 01/12/18 01/13/18 01/13/18 22:22 00:38 05:10 WBC RBC Hgb Hct MCV MCH MCHC RDW RDW Differential Plt Count MPV Immature Gran % (Auto) Neut % (Auto) Lymph % (Auto) [place] % (Auto) Eos % (Auto) Baso % (Auto) Absolute Neuts (auto) Absolute Lymphs (auto) Total Counted PT INR APTT Sodium 140 Potassium 4.2 Chloride 105 Carbon Dioxide 25.0 Anion Gap 10 BUN 9 Creatinine 0.91 Estim Creat Clear Calc 125.27 Est GFR (MDRD) Af Amer 124 Est GFR (MDRD) Non-Af 103 BUN/Creatinine Ratio 9.9 L Glucose 148 H Calcium 9.1 Troponin I 3.930 H* Triglycerides 52 Cholesterol 186 LDL Cholesterol 127 VLDL Cholesterol 10 HDL Cholesterol 49 TSH 0.77 Urine Color Straw Urine Clarity Clear Urine pH 7.0 Ur Specific [place] 1.010 Urine Protein Negative Urine Glucose (UA) Normal Urine Ketones Negative Urine Occult Blood Negative Urine Nitrite Negative Urine Bilirubin Negative Urine Urobilinogen Normal Ur Leukocyte Esterase Negative Urine RBC 0 SEEN Urine WBC 0 SEEN Ur Squamous Epith Cells 0 SEEN Urine Bacteria 0 SEEN Urine Mucus 0 SEEN 01/13/18 01/13/18 05:10 05:10 WBC 5.7 RBC 5.26 Hgb 15.3 Hct 44.0 MCV 83.7 MCH 29.1 MCHC 34.8 RDW 12.3 RDW Differential 37.1 Plt Count 283 MPV 9.4 Immature Gran % (Auto) 0.200 Neut % (Auto) 82.0 H Lymph % (Auto) 15.5 L [place] % (Auto) 1.2 Eos % (Auto) 0.2 Baso % (Auto) 0.9 Absolute Neuts (auto) 4.7 Absolute Lymphs (auto) 0.89 Total Counted Not Reportable PT 12.9 INR 1.0 APTT 32.0 Sodium Potassium Chloride Carbon Dioxide Anion Gap BUN Creatinine Estim Creat Clear Calc Est GFR (MDRD) Af Amer Est GFR (MDRD) Non-Af BUN/Creatinine Ratio Glucose Calcium Troponin I Triglycerides Cholesterol LDL Cholesterol VLDL Cholesterol HDL Cholesterol TSH Urine Color Urine Clarity Urine pH Ur Specific [place] Urine Protein Urine Glucose (UA) Urine Ketones Urine Occult Blood Urine Nitrite Urine Bilirubin Urine Urobilinogen Ur Leukocyte Esterase Urine RBC Urine WBC Ur Squamous Epith Cells Urine Bacteria Urine Mucus Assessment/Plan Patient seen and examined independently. Data reviewed. I agree with the above note by the nurse practitioner. 1. NSTEMI [facility] showed normal coronaries CTA chest done, results pending. follow up echo Code Visit Inpatient E&M: 34888 Subs Hosp L2
--- NOTE | 2018-01-13 19:32 | CL.D_ITS ---
Patient Name: HILLARY MATTHEWS Study Date: 01/13/2018 Performing: Tor Rodrigues MD Ht: 71 inches 180 cm : 1985 Wt: 183.2 lbs 83 kg Age: 32 Gender: male BSA: 2.03 PROCEDURE(S) PERFORMED [id number] CLINICAL PROFILE AND INDICATIONS Indications: ACS <= 24 hrs Heart Failure: None Stress/Imaging Stress/Image Study Performed: No Angina Classification Anginal Classification w/in 2 Weeks: CCS III CAD Presentations: Non-STEMI. CONCLUSIONS Elevated Left Ventricular End Diastolic Pressure Normal LV size, wall motion,and systolic function LVEF: by LV gram 65 % Normal coronary arteries RECOMMENDATIONS Risk factor modification Medical therapy DESCRIPTION OF PROCEDURE The patient arrived to the procedure lab. The risks and benefits of the procedure as well as a full d escription of our services here and current unavailability of surgical backup were fully explained to the patient and/or their significant other prior to the catheterization. The Timeout was completed, verifying the correct patient and procedure. The patient's procedural site was prepped and draped in the usual fashion. Local anesthetic was given subcutaneously to right groin region with Lidocaine 2%. Using a modified Seldinger technique, arterial access was obtained via the right femoral artery, a 4 Fr sheath was inserted Left Coronary Artery selective angiography was performed in multiple views us ing a 4 Fr. JL5 catheter. Right Coronary Artery selective angiography was then performed in multiple views using a 4 Fr. 3DRC catheter. Left Ventriculography was performed in HSIEH projection using a 4 Fr . Pigtail catheter. LV to AO pullback pressures were then recorded.The arterial sheath was pulled and manual compression applied until hemostasis is achieved. CORONARY ANGIOGRAPHY DOMINANCE: Right Dominant LEFT HEART ASSESSMENT Left Ventricular Ejection Fraction: by LV Gram 65 % Normal LV wall motion Elevated Left Ventricular End Diastolic Pressure LVEDP: 18 mmHg LEFT MAIN: Angiographically normal LEFT ANTERIOR DECENDING ARTERY: Angiographically normal CIRCUMFLEX ARTERY: Angiographically normal RIGHT CORONARY ARTERY: Angiographically normal VALVE FINDINGS: Normal Aortic Valve function Normal Mitral Valve function AORTIC ROOT: Angiographically normal COMPLICATIONS No Complications PROCEDURE MEDICATIONS Versed 1 mg IV Versed 1 mg IV Oxygen: 2 L/min via nasal cannula Solu-medrol 125 mg IV 01/13/2018 07:19:54 SUMMARY OF HEMODYNAMIC DATA Time AIR REST ECG 07:00:19 AO 93/65 (79) SA 07:48:34 LV 119/-8, 17 07:55:44 LV 116/-6, 18 07:55:50 LV 108/1, 22 07:56:50 LV 108/-3, 18 07:56:56 LVp 109/-7, 17 07:57:08 AOp 99/64 (82) 07:57:13 Signed By Tor Rodrigues MD On 01/13/2018 19:31:13 Tor Rodrigues MD
--- NOTE | 2018-01-13 20:49 | PCM.PN.CARD ---
Subjectve: The patient underwent diagnostic cardiac catheterization earlier this day without obvious adverse event. His cardiac catheterization demonstrated the appearance of angiographically normal-appearing coronary arteries and overall preserved LV size, wall motion, and systolic function. He is also undergone subsequent follow-up with a transthoracic echocardiogram which also demonstrated overall preserved left ventricular size, wall motion, and systolic function. He had a chest CT scan which demonstrated no great vessel disease/thromboembolic disease. Since that time he has been up and ambulating. He states overall he feels better. He has had no ongoing chest discomfort. There is been no associated dyspnea, nausea, emesis, diaphoresis, palpitations, or the sensation of near syncope or syncope. Objective: Vital Signs Temp Pulse Resp BP Pulse Ox 98.9 F 76 18 108/70 97 01/13/18 15:13 01/13/18 19:00 01/13/18 15:13 01/13/18 15:13 01/13/18 15:13 Oxygen Delivery Method Room Air Weight: 183 lb 10.321 oz Body Mass Index (BMI) 25.6 Intake and Output for Last 24 Hours 01/11/18 01/12/18 01/13/18 23:59 23:59 23:59 Intake Total 2200 / 2200 Output Total 300 / 300 Balance 1900 / 1900 General: Awake, Alert, Oriented x 3, Cooperative, No Acute Distress HEENT: Atraumatic, Normocephalic, PERRL, EOMI, Sclera Non Icteric Oral: Moist Mucosa Neck: Supple, Good ROM Lungs: Clear to auscultation Cardiovascular: Regular Rhythm, Normal S1, Normal S2 Vascular: No Carotid Bruits, Normal Femoral Pulses Abdomen: Bowel Sounds Present, Soft, Non Tender Extremities: No Cyanosis, No Clubbing, No edema Neurological: No Focal Motor or Sensory Deficit Psych/Mental Status: Appropriate, Normal Affect 01/12/18 21:52: Troponin I 4.020 H* 01/12/18 22:22: Urine Color Straw, Urine Clarity Clear, Urine pH 7.0, Ur Specific [place] 1.010, Urine Protein Negative, Urine Glucose (UA) Normal, Urine Ketones Negative, Urine Occult Blood Negative, Urine Nitrite Negative, Urine Bilirubin Negative, Urine Urobilinogen Normal, Ur Leukocyte Esterase Negative, Urine RBC 0 SEEN, Urine WBC 0 SEEN 01/13/18 00:38: Troponin I 3.930 H* 01/13/18 05:10: Sodium 140, Potassium 4.2, Chloride 105, Carbon Dioxide 25.0, Anion Gap 10, BUN 9, Creatinine 0.91, Est GFR (MDRD) Af Amer 124, Est GFR (MDRD) Non-Af 103, BUN/Creatinine Ratio 9.9 L, Glucose 148 H, Calcium 9.1, Triglycerides 52, Cholesterol 186, LDL Cholesterol 127, VLDL Cholesterol 10, HDL Cholesterol 49 01/13/18 05:10: WBC 5.7, RBC 5.26, Hgb 15.3, Hct 44.0, MCV 83.7, MCH 29.1, MCHC 34.8, RDW 12.3, RDW Differential 37.1, Plt Count 283, MPV 9.4, Immature Gran % (Auto) 0.200, Neut % (Auto) 82.0 H, Lymph % (Auto) 15.5 L, [place] % (Auto) 1.2, Eos % (Auto) 0.2, Baso % (Auto) 0.9, Absolute Neuts (auto) 4.7, Total Counted Not Reportable 01/13/18 05:10: PT 12.9, INR 1.0, APTT 32.0 Rhythm: Sinus rhythm EKG: Sinus rhythm; no acute ECG changes ECHO: Please see official report Cardiac Cath: See official report Chest CT Scan: Please see official report Medical Necessity - Tobacco Use Smoking Status: Never smoker Tobacco Use: Non-smoker Assessment/Plan 1. Chest discomfort The etiology of the chest discomfort is somewhat unclear. Thus far he has not been found to have classic angiographically significant appearing coronary artery disease. There is been no definitive evidence of any obvious spontaneous coronary artery vasospasm. He is not found to have any obvious evidence of underlying acute mild pericardial disease. There has been no evidence of any obvious great vessel disease or thromboembolic disease. He does have a cousin who has a congenital clotting abnormality. This may raise a concern as to whether or not he could have a similar disorder that may have spontaneously produced a small thrombus/emboli leading to his symptoms and subsequent objective findings. However, there did not appear to be any obvious findings on his coronary angiogram suggesting a previous thrombus/lysis of event. At the present time it may be reasonable to continue to manage him from a technical non-ST segment elevation DC standpoint. This would include aspirin therapy, beta-kacey therapy, lipid-lowering therapy, etc. He would have outpatient cardiovascular follow-up. He still may need to be considered for a prothrombotic state evaluation per hematology. 2. Abnormal cardiac enzyme Again there is been no definitive explanation for the patient's elevated cardiac enzyme level at this time. He will continue to be treated as a non-ST segment elevation DC at this time. He will continue with follow-up. Again if there is any concern about a potential familial history of a procoagulant state it would not be unreasonable to have the patient evaluated by hematology for further evaluation. 3. Non-ST segment elevation DC Based upon the patient's clinical findings and his abnormal troponin I level there is concern of a non-ST segment elevation DC. He has undergone extensive evaluation as noted above. He will continue to be treated as such. He will continue with outpatient follow-up as deemed appropriate. Again this may include a hematology evaluation for the possibility of a familial procoagulant state. Comment: The above was discussed and reviewed with the patient and his spouse. They were agreeable to this approach. This note was generated with [employer] software. It may contain incorrect words, spelling, and punctuation that were not noted in checking the note before signing.
--- NOTE | 2018-01-13 20:56 | PN.CARD_ITS ---
Subjectve: The patient underwent diagnostic cardiac catheterization earlier this day without obvious adverse event. His cardiac catheterization demonstrated the appearance of angiographically normal-appearing coronary arteries and overall preserved LV size, wall motion, and systolic function. He is also undergone subsequent follow-up with a transthoracic echocardiogram which also demonstrated overall preserved left ventricular size, wall motion, and systolic function. He had a chest CT scan which demonstrated no great vessel disease/thromboembolic disease. Since that time he has been up and ambulating. He states overall he feels better. He has had no ongoing chest discomfort. There is been no associated dyspnea, nausea, emesis, diaphoresis, palpitations, or the sensation of near syncope or syncope. Objective: Vital Signs Temp Pulse Resp BP Pulse Ox 98.9 F 76 18 108/70 97 01/13/18 15:13 01/13/18 19:00 01/13/18 15:13 01/13/18 15:13 01/13/18 15:13 Oxygen Delivery Method Room Air Weight: 183 lb 10.321 oz Body Mass Index (BMI) 25.6 Intake and Output for Last 24 Hours 01/11/18 01/12/18 01/13/18 23:59 23:59 23:59 Intake Total 2200 / 2200 Output Total 300 / 300 Balance 1900 / 1900 General: Awake, Alert, Oriented x 3, Cooperative, No Acute Distress HEENT: Atraumatic, Normocephalic, PERRL, EOMI, Sclera Non Icteric Oral: Moist Mucosa Neck: Supple, Good ROM Lungs: Clear to auscultation Cardiovascular: Regular Rhythm, Normal S1, Normal S2 Vascular: No Carotid Bruits, Normal Femoral Pulses Abdomen: Bowel Sounds Present, Soft, Non Tender Extremities: No Cyanosis, No Clubbing, No edema Neurological: No Focal Motor or Sensory Deficit Psych/Mental Status: Appropriate, Normal Affect 01/12/18 21:52: Troponin I 4.020 H* 01/12/18 22:22: Urine Color Straw, Urine Clarity Clear, Urine pH 7.0, Ur Specific [place] 1.010, Urine Protein Negative, Urine Glucose (UA) Normal, Urine Ketones Negative, Urine Occult Blood Negative, Urine Nitrite Negative, Urine Bilirubin Negative, Urine Urobilinogen Normal, Ur Leukocyte Esterase Negative, Urine RBC 0 SEEN, Urine WBC 0 SEEN 01/13/18 00:38: Troponin I 3.930 H* 01/13/18 05:10: Sodium 140, Potassium 4.2, Chloride 105, Carbon Dioxide 25.0, Anion Gap 10, BUN 9, Creatinine 0.91, Est GFR (MDRD) Af Amer 124, Est GFR (MDRD) Non-Af 103, BUN/Creatinine Ratio 9.9 L, Glucose 148 H, Calcium 9.1, Triglycerides 52, Cholesterol 186, LDL Cholesterol 127, VLDL Cholesterol 10, HDL Cholesterol 49 01/13/18 05:10: WBC 5.7, RBC 5.26, Hgb 15.3, Hct 44.0, MCV 83.7, MCH 29.1, MCHC 34.8, RDW 12.3, RDW Differential 37.1, Plt Count 283, MPV 9.4, Immature Gran % (Auto) 0.200, Neut % (Auto) 82.0 H, Lymph % (Auto) 15.5 L, [place] % (Auto) 1.2, Eos % (Auto) 0.2, Baso % (Auto) 0.9, Absolute Neuts (auto) 4.7, Total Counted Not Reportable 01/13/18 05:10: PT 12.9, INR 1.0, APTT 32.0 Rhythm: Sinus rhythm EKG: Sinus rhythm; no acute ECG changes ECHO: Please see official report Cardiac Cath: See official report Chest CT Scan: Please see official report Medical Necessity - Tobacco Use Smoking Status: Never smoker Tobacco Use: Non-smoker Assessment/Plan 1. Chest discomfort The etiology of the chest discomfort is somewhat unclear. Thus far he has not been found to have classic angiographically significant appearing coronary artery disease. There is been no definitive evidence of any obvious spontaneous coronary artery vasospasm. He is not found to have any obvious evidence of underlying acute mild pericardial disease. There has been no evidence of any obvious great vessel disease or thromboembolic disease. He does have a cousin who has a congenital clotting abnormality. This may raise a concern as to whether or not he could have a similar disorder that may have spontaneously produced a small thrombus/emboli leading to his symptoms and subsequent objective findings. However, there did not appear to be any obvious findings on his coronary angiogram suggesting a previous thrombus/lysis of event. At the present time it may be reasonable to continue to manage him from a technical non-ST segment elevation OR standpoint. This would include aspirin therapy, beta-kacey therapy, lipid-lowering therapy, etc. He would have outpatient cardiovascular follow-up. He still may need to be considered for a prothrombotic state evaluation per hematology. 2. Abnormal cardiac enzyme Again there is been no definitive explanation for the patient's elevated cardiac enzyme level at this time. He will continue to be treated as a non-ST segment elevation OR at this time. He will continue with follow-up. Again if there is any concern about a potential familial history of a procoagulant state it would not be unreasonable to have the patient evaluated by hematology for further evaluation. 3. Non-ST segment elevation OR Based upon the patient's clinical findings and his abnormal troponin I level there is concern of a non-ST segment elevation OR. He has undergone extensive evaluation as noted above. He will continue to be treated as such. He will continue with outpatient follow-up as deemed appropriate. Again this may include a hematology evaluation for the possibility of a familial procoagulant state. Comment: The above was discussed and reviewed with the patient and his spouse. They were agreeable to this approach. This note was generated with [employer] software. It may contain incorrect words, spelling, and punctuation that were not noted in checking the note before signing.
[2018-01-13] MEDS: Atorvastatin Calcium 80 MG Tablet PO (21:09)
[2018-01-13 21:12] LABS: Amphetamine Urine VISTA NEGATIVE (<1000 ng/mL); Barbiturate Urine VISTA NEGATIVE (< 200 ng/mL); Benzodiazepine Urine VISTA NEGATIVE (< 200 ng/mL); Cocaine Urine VISTA NEGATIVE (< 300 ng/mL); Ecstacy Urine VISTA NEGATIVE (< 500 ng/mL); Methadone Urine VISTA NEGATIVE (< 300 ng/mL); PCP Urine VISTA NEGATIVE (< 25 ng/mL); THC Urine VISTA NEGATIVE (< 50 ng/mL); Vista UDS pH Range 6
[2018-01-14 03:00] VITALS: PULSE 58
[2018-01-14 03:05] VITALS: BP 108/42; PULSE 67; RESP 16; TEMP 36.4; O2SAT 98
[2018-01-14 06:40] LABS: Anion Gap 6 (5-15); BUN 14 mg/dL (7-18); BUN/Creat Ratio 17.2 RATIO (10-20); Calcium,Total 8.2 mg/dL (8.5-10.1); Chloride 106 mmol/L (98-107); Creatinine, Serum 0.82 mg/dL (0.70-1.30); EST Glomerular Filtration Rate 117 mL/min (>60); Est Glom Filt Rate - Afr Amer 142 mL/min (>60); Estimated Creatinine Clearance 139.02 ml/min; Glucose 98 mg/dL (74-106); Potassium 4.1 mmol/L (3.5-5.1); Sodium Level 139 mmol/L (136-145)
--- NOTE | 2018-01-14 06:49 | PCM.CONS.GEN ---
Reason for Consult Date of Consultation: 01/14/18 Reason for Consultation: Suspicious findings on lungs CTA History of Present Illness: The patient is a 32-year-old male, with a history as outlined below, who presented to the emergency department on January 12 with complaints of chest pain. Initial EKG revealed sinus rhythm without ST segment changes. The patient denies a personal history of smoking. He did not grow up in a smoking household. His weight has remained stable. His appetite is good. 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 He has lived in [place] his entire life. On arrival to the ED, the patient was noted to be afebrile hemodynamically stable. He was maintaining appropriate oxygen saturations on room air. Initial CBC was unremarkable, as well as chemistry profile. Initial troponin was elevated to 1.69, which peaked at 4.02. UA was negative for the presence of infection. Toxicology screen was negative. The patient was evaluated by cardiology and subsequently taken for cardiac catheterization on January 13. The patient's coronary arteries were noted to be normal. Ejection fraction was 65% with an elevated LVEDP. A CTA chest was also obtained which revealed no evidence for pulmonary embolism. There was, however, incidental note of 2 subcentimeter pulmonary nodules, the largest of which measured 5 mm and was located in the right lower lobe. Past Medical History Allergies Penicillins [PCN] Allergy (Verified 01/12/18 18:06) Unknown shellfish derived Allergy (Verified 01/13/18 13:21) Unknown Home Medications: Ambulatory Orders Medication Instructions Recorded NK 01/12/18 Lives: Spouse/ Significant Other Smoking Status: Never smoker Tobacco Use: Non-smoker Alcohol: None Drugs: None - *Family History Paternal History Items: No pertinent history - Of cardiac disease coronary artery disease/CHF Review of Systems Constitutional: Denies: Chills, Fever, Weight Change HEENT: Denies: Head Aches, Sinus Congestion, Sinus Drainage Cardiovascular: Denies: Chest Pain, Palpitations Respiratory: Denies: Cough, Shortness of breath at rest, Sputum production Gastrointestinal: Denies: Abdominal Pain, Nausea, Vomiting Genitourinary: Denies: Dysuria Musculoskeletal: Denies: Joint Pain, Joint Tenderness Skin: Denies: Rash, Wounds Neurological: Denies: Numbness, Tingling, Focal weakness Psychiatric: Denies: Anxiety, Depression, Homicidal Ideations, Suicidal Ideations Hematologic/ Lymphatic: Denies: Easy Bruising, Easy Bleeding Patient Problems: Active and Suspected Problems Atypical chest pain (Acute) NSTEMI (non-ST elevated myocardial infarction) (Acute) Abnormal cardiac enzyme level (Acute) Objective: The patient's most recent lab work, culture data and imaging studies have all been personally reviewed. - Physical Exam General: Alert, Oriented x3, Cooperative, No apparent distress HEENT: Atraumatic, PERRLA, Normocephalic Oral: Moist Mucosa, No Gingival or Mucosal Lesions/ Ulcerations Neck: Supple, No Nodes, Trachea Midline Lungs: Normal air movement, No rhonchi, No wheeze, No rales Cardiovascular: Regular rate, Regular Rhythm, Normal S1, Normal S2, No murmurs Abdomen: Bowel Sounds Present, Soft, Non Tender, Non-Distended Extremities: No clubbing, No cyanosis, No edema Skin: No rashes, No breakdown Musculoskeletal: No Tenderness to Palpation of Joints or Extremities, No Muscle Wasting Lymphatic: No Cervical, Supraclavicular, or Inguinal Adenopathy Neurological: Cranial nerves II-XII grossly intact, Neuro grossly intact Psych/Mental Status: Alert and oriented to time, place, person, mood and affect Vital Signs Temp Pulse Resp BP Pulse Ox 36.4 C L 67 16 108/42 L 98 01/14/18 03:05 01/14/18 03:05 01/14/18 03:05 01/14/18 03:05 01/14/18 03:05 Oxygen Delivery Method Room Air Weight: 183 lb 10.321 oz Body Mass Index (BMI) 25.6 Intake and Output for Last 24 Hours 01/12/18 01/13/18 01/14/18 23:59 23:59 23:59 Intake Total 2200 / 2200 1618 / 1618 Output Total 300 / 300 Balance 1900 / 1900 1618 / 1618 Laboratory Tests Past 24 Hrs 01/12/18 01/14/18 22:22 05:42 Sodium 139 Potassium 4.1 Chloride 106 Carbon Dioxide 27.0 Anion Gap 6 BUN 14 Creatinine 0.82 Estim Creat Clear Calc 139.02 Est GFR (MDRD) Af Amer 142 Est GFR (MDRD) Non-Af 117 BUN/Creatinine Ratio 17.2 Glucose 98 Calcium 8.2 L Urine Opiates Screen NEGATIVE Urine Methadone Screen NEGATIVE Ur Barbiturates Screen NEGATIVE Ur Phencyclidine Scrn NEGATIVE Ur Amphetamines Screen NEGATIVE U Methamphetamin-MDMA NEGATIVE U Benzodiazepines Scrn NEGATIVE Urine Cocaine Screen NEGATIVE U Cannabinoids Screen NEGATIVE Ur Drug Screen Comment Clinical Impression(s) from Imaging Studies Chest X-Ray 01/12/18 18:20 IMPRESSION: Normal x-ray examination of the chest. Electronically Signed: Jana June MD at 19:18 EST Tel , Service support , Chest CTA 01/13/18 08:43 IMPRESSION: 1. No evidence of pulmonary embolus or aortic dissection. 2. Nonspecific pulmonary nodules on the right. If the patient is at high risk for pulmonary malignancy, consider follow-up CT at 12 months. 3. Old granulomatous disease. Electronically Signed: Jana June MD at 17:14 EST Tel , Service support , Assessment/Plan All Active Problems Atypical chest pain (Acute) NSTEMI (non-ST elevated myocardial infarction) (Acute) Abnormal cardiac enzyme level (Acute) RECOMMENDATIONS: 1. Follow-up in the pulmonary medicine clinic as an outpatient with plans for repeat chest CT in 1 year. IMPRESSIONS: 1. Subcentimeter pulmonary nodules These findings are not suspicious in nature. Based upon the revised Fleischner Society 2017 recommendations, an optional CT chest can be obtained in 12 months in this patient. Recommend follow-up in the pulmonary medicine clinic and repeat noncontrasted chest CT in 1 year. No additional workup is indicated at this time. I will have our office staff contact the patient early next week to schedule his follow-up office visit along with repeat CT chest. He can be discharged home from a pulmonary perspective. This note was generated with [employer] dictation software. It may contain incorrect words, spelling, and punctuation that were not noted in checking the note before signing. We will sign off at this time. Please call with any additional questions. Code Visit Inpatient E&M: 57726 Init Hosp L2
--- NOTE | 2018-01-14 06:56 | CON.PCM_ITS ---
Reason for Consult Date of Consultation: 01/14/18 Reason for Consultation: Suspicious findings on lungs CTA History of Present Illness: The patient is a 32-year-old male, with a history as outlined below, who presented to the emergency department on January 12 with complaints of chest pain. Initial EKG revealed sinus rhythm without ST segment changes. The patient denies a personal history of smoking. He did not grow up in a smoking household. His weight has remained stable. His appetite is good. 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 He has lived in [place] his entire life. On arrival to the ED, the patient was noted to be afebrile hemodynamically stable. He was maintaining appropriate oxygen saturations on room air. Initial CBC was unremarkable, as well as chemistry profile. Initial troponin was elevated to 1.69, which peaked at 4.02. UA was negative for the presence of infection. Toxicology screen was negative. The patient was evaluated by cardiology and subsequently taken for cardiac catheterization on January 13. The patient's coronary arteries were noted to be normal. Ejection fraction was 65% with an elevated LVEDP. A CTA chest was also obtained which revealed no evidence for pulmonary embolism. There was, however, incidental note of 2 subcentimeter pulmonary nodules, the largest of which measured 5 mm and was located in the right lower lobe. Past Medical History Allergies Penicillins [PCN] Allergy (Verified 01/12/18 18:06) Unknown shellfish derived Allergy (Verified 01/13/18 13:21) Unknown Home Medications: Ambulatory Orders Medication Instructions Recorded NK 01/12/18 Lives: Spouse/ Significant Other Smoking Status: Never smoker Tobacco Use: Non-smoker Alcohol: None Drugs: None - *Family History Paternal History Items: No pertinent history - Of cardiac disease coronary artery disease/CHF Review of Systems Constitutional: Denies: Chills, Fever, Weight Change HEENT: Denies: Head Aches, Sinus Congestion, Sinus Drainage Cardiovascular: Denies: Chest Pain, Palpitations Respiratory: Denies: Cough, Shortness of breath at rest, Sputum production Gastrointestinal: Denies: Abdominal Pain, Nausea, Vomiting Genitourinary: Denies: Dysuria Musculoskeletal: Denies: Joint Pain, Joint Tenderness Skin: Denies: Rash, Wounds Neurological: Denies: Numbness, Tingling, Focal weakness Psychiatric: Denies: Anxiety, Depression, Homicidal Ideations, Suicidal Ideations Hematologic/ Lymphatic: Denies: Easy Bruising, Easy Bleeding Patient Problems: Active and Suspected Problems Atypical chest pain (Acute) NSTEMI (non-ST elevated myocardial infarction) (Acute) Abnormal cardiac enzyme level (Acute) Objective: The patient's most recent lab work, culture data and imaging studies have all been personally reviewed. - Physical Exam General: Alert, Oriented x3, Cooperative, No apparent distress HEENT: Atraumatic, PERRLA, Normocephalic Oral: Moist Mucosa, No Gingival or Mucosal Lesions/ Ulcerations Neck: Supple, No Nodes, Trachea Midline Lungs: Normal air movement, No rhonchi, No wheeze, No rales Cardiovascular: Regular rate, Regular Rhythm, Normal S1, Normal S2, No murmurs Abdomen: Bowel Sounds Present, Soft, Non Tender, Non-Distended Extremities: No clubbing, No cyanosis, No edema Skin: No rashes, No breakdown Musculoskeletal: No Tenderness to Palpation of Joints or Extremities, No Muscle Wasting Lymphatic: No Cervical, Supraclavicular, or Inguinal Adenopathy Neurological: Cranial nerves II-XII grossly intact, Neuro grossly intact Psych/Mental Status: Alert and oriented to time, place, person, mood and affect Vital Signs Temp Pulse Resp BP Pulse Ox 36.4 C L 67 16 108/42 L 98 01/14/18 03:05 01/14/18 03:05 01/14/18 03:05 01/14/18 03:05 01/14/18 03:05 Oxygen Delivery Method Room Air Weight: 183 lb 10.321 oz Body Mass Index (BMI) 25.6 Intake and Output for Last 24 Hours 01/12/18 01/13/18 01/14/18 23:59 23:59 23:59 Intake Total 2200 / 2200 1618 / 1618 Output Total 300 / 300 Balance 1900 / 1900 1618 / 1618 Laboratory Tests Past 24 Hrs 01/12/18 01/14/18 22:22 05:42 Sodium 139 Potassium 4.1 Chloride 106 Carbon Dioxide 27.0 Anion Gap 6 BUN 14 Creatinine 0.82 Estim Creat Clear Calc 139.02 Est GFR (MDRD) Af Amer 142 Est GFR (MDRD) Non-Af 117 BUN/Creatinine Ratio 17.2 Glucose 98 Calcium 8.2 L Urine Opiates Screen NEGATIVE Urine Methadone Screen NEGATIVE Ur Barbiturates Screen NEGATIVE Ur Phencyclidine Scrn NEGATIVE Ur Amphetamines Screen NEGATIVE U Methamphetamin-MDMA NEGATIVE U Benzodiazepines Scrn NEGATIVE Urine Cocaine Screen NEGATIVE U Cannabinoids Screen NEGATIVE Ur Drug Screen Comment Clinical Impression(s) from Imaging Studies Chest X-Ray 01/12/18 18:20 IMPRESSION: Normal x-ray examination of the chest. Electronically Signed: Jana June MD at 19:18 EST Tel , Service support , Chest CTA 01/13/18 08:43 IMPRESSION: 1. No evidence of pulmonary embolus or aortic dissection. 2. Nonspecific pulmonary nodules on the right. If the patient is at high risk for pulmonary malignancy, consider follow-up CT at 12 months. 3. Old granulomatous disease. Electronically Signed: Jana June MD at 17:14 EST Tel , Service support , Assessment/Plan All Active Problems Atypical chest pain (Acute) NSTEMI (non-ST elevated myocardial infarction) (Acute) Abnormal cardiac enzyme level (Acute) RECOMMENDATIONS: 1. Follow-up in the pulmonary medicine clinic as an outpatient with plans for repeat chest CT in 1 year. IMPRESSIONS: 1. Subcentimeter pulmonary nodules These findings are not suspicious in nature. Based upon the revised Fleischner Society 2017 recommendations, an optional CT chest can be obtained in 12 months in this patient. Recommend follow-up in the pulmonary medicine clinic and repeat noncontrasted chest CT in 1 year. No additional workup is indicated at this time. I will have our office staff contact the patient early next week to schedule his follow-up office visit along with repeat CT chest. He can be discharged home from a pulmonary perspective. This note was generated with [employer] dictation software. It may contain incorrect words, spelling, and punctuation that were not noted in checking the note before signing. We will sign off at this time. Please call with any additional questions. Code Visit Inpatient E&M: 93125 Init Hosp L2
[2018-01-14 07:07] VITALS: PULSE 69
[2018-01-14 08:37] VITALS: PULSE 71
[2018-01-14] MEDS: Aspirin E.C. 81 MG Tablet PO (08:37)
[2018-01-14] MEDS: Metoprolol Tartrate 25 MG Tablet PO (08:37)
[2018-01-14 08:40] VITALS: BP 117/66; PULSE 71; RESP 16; TEMP 36.8; O2SAT 97
--- NOTE | 2018-01-14 09:00 | PCM.DC ---
- Discharge Diagnoses Current Active Problems: Current Active and Chronic Problems Atypical chest pain (Acute) NSTEMI (non-ST elevated myocardial infarction) (Acute) Abnormal cardiac enzyme level (Acute) You will use the following diet at home:: No restrictions Discharge Activity: Return to Normal Activity Call your doctor if you observe: Shortness of breath, Dizziness, Fainting spells, Chest pain Allergies/Adverse Reactions: Allergies Penicillins [PCN] Allergy (Verified 01/12/18 18:06) Unknown shellfish derived Allergy (Verified 01/13/18 13:21) Unknown Medications to take at Discharge NK 01/12/18 Primary Care Physician: Jarett Leija MD [Primary Care Provider] - Please follow up with your Primary Care Physician in: 1 Week Test Results: Test results from this visit will be discussed in further detail at your follow-up appointment, if applicable. Please Follow Up With: Brian David DO When: 1 Year Proposed Discharge Date: 01/14/18
--- NOTE | 2018-01-14 09:08 | DCINST_ITS ---
- Discharge Diagnoses Current Active Problems: Current Active and Chronic Problems Atypical chest pain (Acute) NSTEMI (non-ST elevated myocardial infarction) (Acute) Abnormal cardiac enzyme level (Acute) You will use the following diet at home:: No restrictions Discharge Activity: Return to Normal Activity Call your doctor if you observe: Shortness of breath, Dizziness, Fainting spells, Chest pain Allergies/Adverse Reactions: Allergies Penicillins [PCN] Allergy (Verified 01/12/18 18:06) Unknown shellfish derived Allergy (Verified 01/13/18 13:21) Unknown Medications to take at Discharge NK 01/12/18 Primary Care Physician: Jarett Leija MD [Primary Care Provider] - Please follow up with your Primary Care Physician in: 1 Week Test Results: Test results from this visit will be discussed in further detail at your follow- up appointment, if applicable. Please Follow Up With: Brian David DO When: 1 Year Proposed Discharge Date: 01/14/18
--- NOTE | 2018-01-14 09:32 | PCM.DC.SUM ---
Discharge Date and Diagnosis Date of Admission: 01/12/18 Date of Discharge: 01/14/18 - Primary Discharge Diagnosis 1. NSTEMI, unclear etiology 2. Subcentimeter pulmonary nodules Hospital Course and Treatment Imaging Results: Diagnostic Data Chest X-Ray 01/12/18 18:20 IMPRESSION: Normal x-ray examination of the chest. Electronically Signed: Jana June MD at 19:18 EST Tel , Service support , Chest CTA 01/13/18 08:43 IMPRESSION: 1. No evidence of pulmonary embolus or aortic dissection. 2. Nonspecific pulmonary nodules on the right. If the patient is at high risk for pulmonary malignancy, consider follow-up CT at 12 months. 3. Old granulomatous disease. Electronically Signed: Jana June MD at 17:14 EST Tel , Service support , Dr. David- Pulmonary Medicine Dr. Rodrigues- Cardiology Operations: None Procedures: 2-D Echocardiogram, Cardiac catheterization Summary of Care Provided: The patient is a 32 year old M admitted 01/12/18 due to chest pain. No past medical history. Patient with NSTEMI on admission, peak troponin 4.0. Patient underwent cardiac catheterization which showed normal coronary arteries. LVEF 65%. Normal wall motion. Echocardiogram showed an EF of 65%, RVSP estimated to be 28 mmHg. Chest CTA showed no evidence of PE or aortic dissection. Nonspecific pulmonary nodules on the right. Pulmonary medicine consulted who recommends follow-up in 1 year with repeat chest CT. Patient's chest pain has resolved. He does have some tenderness to palpation mid sternum. No definitive explanation of elevated cardiac enzymes. DC on baby aspirin and metoprolol 25mg daily. Follow up with PCP in 1 week. Pulmonary Medicine in 1 year. Follow up with Dr. Rodrigues in 2-4 weeks. General: Alert, Oriented x3, Cooperative HEENT: Atraumatic, PERRLA, EOMI, Normocephalic Neck: Supple, No JVD, Negative Carotid Bruits Lungs: Clear to auscultation, Normal air movement Cardiovascular: Regular rate, Regular Rhythm, Normal S1, Normal S2, No murmurs Abdomen: Bowel Sounds Present, Soft, Non Tender, Non-Distended Extremities: No clubbing, No cyanosis, No edema, Capillary Refill Less than 3 Seconds Skin: No rashes, No breakdown Musculoskeletal: No Tenderness to Palpation of Joints or Extremities Neurological: Cranial nerves II-XII grossly intact, Neuro grossly intact Psych/Mental Status: Normal Affect, Appropriate Patient seen and examined prior to discharge. Physical assessment as noted above. Patient stable for discharge home with follow-up recommendations as noted above. This patient was seen by REINALDO Gregg under the supervision of Dr. Gandara. - Physical Exam Vital Signs Temp Pulse Resp BP Pulse Ox 98.2 F 71 16 117/66 97 01/14/18 08:40 01/14/18 08:40 01/14/18 08:40 01/14/18 08:40 01/14/18 08:40 Oxygen Delivery Method Room Air Weight: 183 lb 10.321 oz Body Mass Index (BMI) 25.6 Intake and Output for Last 24 Hours 01/12/18 01/13/18 01/14/18 23:59 23:59 23:59 Intake Total 2200 / 2200 1618 / 1618 Output Total 300 / 300 Balance 1900 / 1900 1618 / 1618 Laboratory Tests Past 24 Hrs 01/12/18 01/14/18 01/14/18 22:22 05:42 05:42 ESR Pending Sodium 139 Potassium 4.1 Chloride 106 Carbon Dioxide 27.0 Anion Gap 6 BUN 14 Creatinine 0.82 Estim Creat Clear Calc 139.02 Est GFR (MDRD) Af Amer 142 Est GFR (MDRD) Non-Af 117 BUN/Creatinine Ratio 17.2 Glucose 98 Calcium 8.2 L C-React Prot Ext Range Urine Opiates Screen NEGATIVE Urine Methadone Screen NEGATIVE Ur Barbiturates Screen NEGATIVE Ur Phencyclidine Scrn NEGATIVE Ur Amphetamines Screen NEGATIVE U Methamphetamin-MDMA NEGATIVE U Benzodiazepines Scrn NEGATIVE Urine Cocaine Screen NEGATIVE U Cannabinoids Screen NEGATIVE Ur Drug Screen Comment 01/14/18 05:42 ESR Sodium Potassium Chloride Carbon Dioxide Anion Gap BUN Creatinine Estim Creat Clear Calc Est GFR (MDRD) Af Amer Est GFR (MDRD) Non-Af BUN/Creatinine Ratio Glucose Calcium C-React Prot Ext Range Pending Urine Opiates Screen Urine Methadone Screen Ur Barbiturates Screen Ur Phencyclidine Scrn Ur Amphetamines Screen U Methamphetamin-MDMA U Benzodiazepines Scrn Urine Cocaine Screen U Cannabinoids Screen Ur Drug Screen Comment Discharge Diet: No Restrictions Discharge Activity: Return to Normal Activity Call your doctor if you observe: Shortness of breath, Dizziness, Fainting spells, Chest pain Home Medications: Medications to take at Discharge Aspirin [Aspirin EC] 81 mg PO DAILY #30 tablet. 01/14/18 Metoprolol Tartrate 25 mg PO DAILY #30 tablet 01/14/18 Following Prescrptions Were Given to Patient: Aspirin [Aspirin EC] 81 mg PO DAILY #30 tablet. Metoprolol Tartrate 25 mg PO DAILY #30 tablet Primary Care Physician: Jarett Leija MD [Primary Care Provider] - Please follow up with your Primary Care Physician in: 1 Week Please Follow Up With: Brian David DO When: 1 Year Please Follow Up With: Tor Rodrigues MD When: 2-4 Weeks Disposition: Home Minutes spent on discharge:: 35 Patient Condition:: Stable Medical Necessity - Tobacco Use Smoking Status: Never smoker Tobacco Use: Non-smoker Meaningful Use Info Meaningful Use Diagnoses (Choose all that apply): None applicable
[2018-01-14 09:44] LABS: Erythrocyte Sedimentation Rate 5 mm/hr (0-15)
[2018-01-14 09:46] LABS: CRP < 2.90 mg/L (0.0-3.0)
--- NOTE | 2018-01-14 10:06 | PN.CARD_ITS ---
Subjectve: Patient doing well this morning. No chest pain. Telemetry shows normal sinus rhythm without evidence of ectopy. Echocardiogram showed normal LV function, normal RV pressures. CTA was negative for pulmonary embolism, but did show some mild lymphadenopathy. I reviewed his catheterization film which showed no significant coronary disease whatsoever and normal LV function. Objective: Vital Signs Temp Pulse Resp BP Pulse Ox 98.2 F 71 16 117/66 97 01/14/18 08:40 01/14/18 08:40 01/14/18 08:40 01/14/18 08:40 01/14/18 08:40 Oxygen Delivery Method Room Air Weight: 183 lb 10.321 oz Body Mass Index (BMI) 25.6 Intake and Output for Last 24 Hours 01/12/18 01/13/18 01/14/18 23:59 23:59 23:59 Intake Total 2200 / 2200 1618 / 1618 Output Total 300 / 300 Balance 1900 / 1900 1618 / 1618 General: Awake, Alert, Oriented x 3 HEENT: PERRL, EOMI, Sclera Non Icteric Neck: Supple, Good ROM, No Lymph Node Enlargement Lungs: Clear to auscultation Cardiovascular: Regular Rhythm, Normal S1, Normal S2, No Murmurs, No Rubs, No Gallops Vascular: No Carotid Bruits, Normal Femoral Pulses, Normal Radial Pulses, Normal Dorsalis Pedal Pulse, Normal Posterior Tibial Pulses Abdomen: Bowel Sounds Present, Soft, Non Tender, No HSM, No Organomegaly Extremities: No Cyanosis, No Clubbing, No edema Neurological: No Focal Motor or Sensory Deficit 01/14/18 05:42: Sodium 139, Potassium 4.1, Chloride 106, Carbon Dioxide 27.0, Anion Gap 6, BUN 14, Creatinine 0.82, Est GFR (MDRD) Af Amer 142, Est GFR (MDRD) Non-Af 117, BUN/Creatinine Ratio 17.2, Glucose 98, Calcium 8.2 L Rhythm: EKG: ECHO: Stress Test: Cardiac Cath: PCI: CT Surgery: Holter monitor: EPS: PPM: CXR: Chest CT Scan: Medical Necessity - Tobacco Use Smoking Status: Never smoker Tobacco Use: Non-smoker Assessment/Plan 1. Non-STEMI: Patient has no significant coronary artery disease to explain his non-STEMI. He has normal LV function, and CTA is negative for pulmonary embolism. Patient does relate that he was under a significant amount of stress on the evening of admission, and may have had vasoconstrictive event due to adrenaline surge. Patient will be treated as a non-STEMI with baby aspirin and beta-kacey going forward. His telemetry has been negative. Recommend that he be discharged home and follow-up with Dr. Rodrigues going forward in 2-4 weeks time. Should the patient have recurrent substernal chest pain, he may require switching from beta-kacey to calcium channel kacey for coronary vasodilata tion and heart rate control. Patient has had no further chest pain symptoms. 2. Patient will be discharged home today. Code Visit Inpatient E&M: 90534 Subs Hosp L2
== END 2018-01-14 11:03 | disposition home or self-care (01) | DRG 282 ==
LOC: ED 18:58 → PCU 19:46
PROVIDERS: Internal Medicine Cardiovascular Disease; Nurse Practitioner Family; Admitting Provider Internal Medicine; Emergency Provider Emergency Medicine; Family Provider Family Medicine; PCP Family Medicine
DX: I21.3 ST elevation (STEMI) myocardial infarction of unspecified site (principal); R91.8 Other nonspecific abnormal finding of lung field
CPT/HCPCS: 36415; 71045; 71275; 80048; 80061; 80307; 81001; 84443; 84484; 85025; 85610; 85652; 85730; 86140; 93005; 93306; 93458; 99152; 99153; 99285; J7030; Q9967; A4216; C1769; C1894